=== PATIENT | male | born 1960 | race Caucasian/White ===

== ENCOUNTER → 2021-06-22 08:33 | Outpatient (BNVA) | payer OTHER, SELFPAY | PROVIDERS: Family Provider Physician Assistant Medical; PCP Registered Nurse; Visit Provider Urology | DX: N40.1 Benign prostatic hyperplasia with lower urinary tract symptoms (principal); R97.20 Elevated prostate specific antigen [PSA]; R10.31 Right lower quadrant pain; R36.1 Hematospermia | CPT/HCPCS: 81003; 84153 ==

== ENCOUNTER → 2021-07-12 08:42 | Outpatient (BNVA) | payer OTHER, SELFPAY | PROVIDERS: Family Provider Physician Assistant Medical; PCP Registered Nurse; Visit Provider Urology | DX: N40.1 Benign prostatic hyperplasia with lower urinary tract symptoms (principal) | CPT/HCPCS: 81003; 87086; 88112 ==

== ENCOUNTER 2021-11-13 07:52 | Outpatient (CLI) | payer OTHER, SELFPAY | END 2021-11-13 07:53 | disposition home or self-care (01) | LOC: LAB 07:52 | PROVIDERS: PCP Registered Nurse; Visit Provider Urology | DX: R97.20 Elevated prostate specific antigen [PSA] (principal); N40.1 Benign prostatic hyperplasia with lower urinary tract symptoms | CPT/HCPCS: 36415; 81003; 84153 ==

== ENCOUNTER → 2022-05-16 10:48 | Outpatient (BNVA) | payer OTHER, SELFPAY | PROVIDERS: PCP Registered Nurse; Visit Provider Urology | DX: R97.20 Elevated prostate specific antigen [PSA] (principal); N40.1 Benign prostatic hyperplasia with lower urinary tract symptoms; N52.9 Male erectile dysfunction, unspecified; N30.90 Cystitis, unspecified without hematuria | CPT/HCPCS: 81003 ==